=== PATIENT | female | born 1965 | race African-American/Black ===

== ENCOUNTER 2019-11-17 02:46 | Emergency (ER) | payer OTHER ==
[2019-11-17] MEDS ORDERED: Ibuprofen 800 MG TAB ONE (03:06)
--- NOTE | 2019-11-17 07:31 | RAD ---
Exam:3 views right hand HISTORY: Pain. Injury. First digit pain. COMPARISON: None FINDINGS: No fracture, cortical irregularity or periosteal reaction. Preserved joint spaces. IMPRESSION: No fracture.
== END 2019-11-17 03:15 | disposition home or self-care (01) ==
LOC: ERS 02:46
DX: M79.644 Pain in right finger(s) (principal); E11.9 Type 2 diabetes mellitus without complications; E78.5 Hyperlipidemia, unspecified; Z79.899 Other long term (current) drug therapy

== ENCOUNTER 2021-06-05 07:49 | Outpatient (CLI) | payer OTHER | END 2021-06-05 07:50 | disposition home or self-care (01) | LOC: BICULT 07:49 | PROVIDERS: ATTEND Physician Assistant | DX: N92.6 Irregular menstruation, unspecified (principal); D25.9 Leiomyoma of uterus, unspecified; R93.89 Abnormal findings on diagnostic imaging of other specified body structures | CPT/HCPCS: 76856 ==

== ENCOUNTER 2022-02-24 09:12 | Outpatient (CLI) | payer BC | END 2022-02-24 09:13 | disposition home or self-care (01) | LOC: SCSRAD 09:12 | PROVIDERS: ATTEND Family Medicine | DX: M79.674 Pain in right toe(s) (principal); S92.511A Displaced fracture of proximal phalanx of right lesser toe(s), initial encounter for closed fracture ==

== ENCOUNTER 2024-08-04 10:41 | Outpatient (CLI) | payer BC | END 2024-08-04 10:42 | disposition home or self-care (01) | LOC: BICMAMMO 10:41 | PROVIDERS: ATTEND Family Medicine | DX: Z12.31 Encounter for screening mammogram for malignant neoplasm of breast (principal) | CPT/HCPCS: 77063; 77067 ==